=== PATIENT | male | born 1955 | race Caucasian/White ===

== ENCOUNTER → 2022-07-04 14:22 | Outpatient (CLI) | payer MEDICARE, OTHER, SELFPAY ==
--- NOTE | ~2022-07-04 | MR_ITS ---
EXAMINATION: MR abdomen wo/w con DATE: 07/04/2022 15:45 INDICATION: Renal lesion. TECHNIQUE: Magnetic resonance imaging (MRI) of the abdomen was performed without and with 20 mL Multi Nicolas intravenous contrast. COMPARISON: CT abdomen and pelvis 06/10/2022 FINDINGS: There is diffuse hepatic steatosis. The gallbladder, spleen, pancreas, adrenal glands, and right kidn ey are normal. There is a 2.3 cm enhancing mass in mid zone and inferior pole of left kidney. There a re no pathologically enlarged lymph nodes. There is no free intraperitoneal fluid. IMPRESSION: 1. Enhancing 2.3 cm mass in left kidney, consistent with renal cell carcinoma. Reviewed, dictated and finalized at location A. CH MAKER
== END ==
PROVIDERS: PCP Family Medicine; Visit Provider Family Medicine
DX: N28.9 Disorder of kidney and ureter, unspecified (principal)
CPT/HCPCS: 74183; A9577

== ENCOUNTER → 2022-10-31 09:27 | Outpatient (CLI) | payer MEDICARE, OTHER, SELFPAY ==
--- NOTE | ~2022-10-31 | MR_ITS ---
EXAMINATION: MR abdomen wo/w con INDICATION: Left kidney mass status post cryoablation TECHNIQUE: Coronal SSFSE ARC, WATER:coronal LAVA-FLEX, Coronal 2D FIESTA FatSat, Axial SSFSE BH ARC, Axial 3D DualEcho BH, Axial SSFSE-IR, Axial DWI b=500, Axial 2D FIESTA FatSat, pre and dynamic postco ntrast Axial LAVA ARC, postcontrast Coronal In and Opposed phase LAVA FLEX COMPARISON: 07/04/2022 CONTRAST: Multihance, 20 cc FINDINGS: There is loss of hepatic parenchymal signal on opposed phase imaging, consistent with hepat ic steatosis. The spleen, pancreas, gallbladder, and adrenal glands are normal. The right kidney is u nremarkable. There are changes of interval cryoablation of the previously described left kidney mass with heterogeneous T1 and T2 signal intensity replacing the previously described mass. There are tiny foci of peripheral enhancement at the posterior margin of the cryoablation zone. There are no pathol ogically enlarged abdominal lymph nodes. No dilated loops of bowel are evident. IMPRESSION: 1. Changes of interval cryoablation of the previously described left kidney mass with tiny peripheral foci of enhancement at the posterior margin of the cryoablation zone, likely residual normal renal p arenchyma. Follow-up MRI without and with contrast in six months is recommended. Reviewed, dictated and finalized at location L. IMPRESSION: 1. Changes of interval cryoablation of the previously described left kidney mas s with tiny peripheral foci of enhancement at the posterior margin of the cryoa blation zone, likely residual normal renal parenchyma. Follow-up MRI without an d with contrast in six months is recommended.
== END ==
PROVIDERS: PCP Family Medicine; Visit Provider Urology
DX: N28.89 Other specified disorders of kidney and ureter (principal)
CPT/HCPCS: 74183; A9577

== ENCOUNTER → 2023-05-08 10:48 | Outpatient (CLI) | payer MEDICARE, OTHER, SELFPAY ==
--- NOTE | ~2023-05-08 | MR_ITS ---
EXAMINATION: MR abdomen wo/w con DATE: 05/08/2023 11:52 INDICATION: Renal mass TECHNIQUE: Magnetic resonance imaging (MRI) of the abdomen was performed without and with 20 mL Multi will intravenous contrast. Sequences included coronal T2-weighted SS-FSE, coronal and axial FS 2D-F IESTA, axial STIR FSE, axial T2-weighted SS-FSE, axial T2-weighted FS SS-FSE, axial diffusion-weighte d SE, axial dual-echo T1-weighted FSPGR, and axial and coronal T1-weighted LAVA. Postcontrast axial T 1-weighted LAVA images were obtained in a time course. Postcontrast coronal T1-weighted LAVA images w ere obtained. COMPARISON: 10/31/2022 FINDINGS: Heart size is normal. No pericardial or pleural effusion. Dependently layering sludge in the normal p artially decompressed gallbladder. Liver, spleen, pancreas, right kidney and bilateral adrenal glands are normal. Again seen are changes of a prior cryoablation with thin peripheral rim of enhancement along the davidson ins of a masslike region at the lower pole of the left kidney. There is decrease in size of of the re gion which contains T1 fat saturating fat at the laterally and nonenhancing intermediate signal inten sity, nonsaturating T1 signal potentially representing blood or proteinaceous fluid at the site of an earlier enhancing renal cell carcinoma. The region currently measures 3.7 x 3.7 x 2.8 cm with prior corresponding dimensions of 4.5 x 4.0 x 3.8 cm. There is no more nodular solid enhancing soft tissue component to suggest residual or recurrent disease. Visualized portion of the bowels appear normal with no obstruction. The visualized cephalad portion o f the bladder is unremarkable. No pathologically enlarged abdominal or upper pelvic lymphadenopathy. Normal bone marrow signal throughout. IMPRESSION: 1. Interval decrease in size of a masslike region at the lower pole of the left kidney with thin alex pheral enhancement likely reflecting changes of prior ablation of an earlier enhancing renal cell car cinoma. No evident residual, recurrent or metastatic disease. Reviewed, dictated and finalized at location A. TARY [employer] IMPRESSION: 1. Interval decrease in size of a masslike region at the lower pole of the left kidney with thin peripheral enhancement likely reflecting changes of prior abl ation of an earlier enhancing renal cell carcinoma. No evident residual, recurr ent or metastatic disease.
== END ==
PROVIDERS: PCP Family Medicine; Visit Provider Urology
DX: N28.89 Other specified disorders of kidney and ureter (principal)
CPT/HCPCS: 74183; A9577

== ENCOUNTER 2023-12-08 10:56 | Outpatient (CLI) | payer MEDICARE, OTHER, SELFPAY ==
--- NOTE | ~2023-12-08 | MR_ITS ---
EXAMINATION: MR abdomen wo/w con DATE: 12/08/2023 12:29 INDICATION: Kidney mass. TECHNIQUE: Magnetic resonance imaging (MRI) of the abdomen was performed without and with 20 mL Multi Nicolas intravenous contrast. COMPARISON: Abdomen MRI 05/08/2023, CT abdomen and pelvis 06/10/2022 FINDINGS: The liver, gallbladder, spleen, pancreas, adrenal glands, and right kidney are normal. There are [place] ges of cryoablation of left kidney. There are no dilated loops of bowel. There are no pathologically enlarged lymph nodes. There is no free intraperitoneal fluid. IMPRESSION: 1. Left kidney cryoablation. No residual or recurrent neoplasm. Reviewed, dictated and finalized at location A.
== END 2023-12-08 10:57 | disposition home or self-care (01) ==
LOC: ANHIMG 11:00
PROVIDERS: PCP Family Medicine; Visit Provider Urology
DX: N28.89 Other specified disorders of kidney and ureter (principal)
CPT/HCPCS: 74183; A9577